=== PATIENT | female | born 1965 | race Caucasian/White ===

== ENCOUNTER 2021-03-18 10:33 | Outpatient (RCR) | payer OTHER, SELFPAY | END 2021-04-05 23:59 | disposition home or self-care (01) | LOC: SPT 10:33 | PROVIDERS: Family Provider Family Medicine; PCP Family Medicine; Referring Provider Internal Medicine; Visit Provider Internal Medicine | DX: M12.812 Other specific arthropathies, not elsewhere classified, left shoulder (principal) | CPT/HCPCS: 97110; 97140; 97162 ==

== ENCOUNTER 2021-03-25 17:13 | Outpatient (CLI) | payer OTHER, SELFPAY ==
--- NOTE | 2021-03-25 | XRR_ITS ---
PROCEDURE INFORMATION: Exam: XR Left Shoulder Exam date and time: 03/25/2021 5:34 PM Age: 56 years old Clinical indication: Pain; Shoulder; Left; Additional info: Left shoulder pain TECHNIQUE: Imaging protocol: XR Left shoulder. Views: 2 or more views. COMPARISON: No relevant prior studies available. FINDINGS: Bones/joints: Normal. Soft tissues: Small soft tissue calcification near the insertion of the supraspinatus tendon. Calcific tendinopathy not excluded. XR/XR shoulder LT min 2V* [id number] IMPRESSION: No acute osseous findings.
== END 2021-03-25 17:14 | disposition home or self-care (01) ==
PROVIDERS: PCP Internal Medicine; Visit Provider Internal Medicine
DX: M25.512 Pain in left shoulder (principal)
CPT/HCPCS: 73030

== ENCOUNTER 2021-04-06 06:00 | Outpatient (RCR) | payer OTHER, SELFPAY | END 2021-05-06 23:59 | disposition home or self-care (01) | LOC: SPT 06:00 | PROVIDERS: PCP Internal Medicine; Referring Provider Internal Medicine; Visit Provider Internal Medicine | DX: M12.812 Other specific arthropathies, not elsewhere classified, left shoulder (principal) | CPT/HCPCS: 97110; 97140 ==

== ENCOUNTER 2024-09-02 16:37 | Outpatient (CLI) | payer OTHER, SELFPAY ==
--- NOTE | 2024-09-02 16:37 | XRR_ITS ---
PROCEDURE INFORMATION: Exam: XR Sacrum and Coccyx, 2 or More Views Exam date and time: 09/02/2024 4:49 PM Age: 59 years old Clinical indication: Pain in coccyx area; Since August 19 pain in pelvis and tailbone area, no specific injury; Additional info: M53.2x8 - spinal instabilities, sacral and sacrococcygeal. . . TECHNIQUE: Imaging protocol: XR of the sacrum and coccyx, 2 or more views. COMPARISON: CR XR pelvis 1-2V* [id number] 09/02/2024 4:49 PM FINDINGS: Bones/joints: Normal. No acute fracture. Soft tissues: Normal. XR/XR sacrum coccyx min 2V [id number] IMPRESSION: No acute findings.
--- NOTE | 2024-09-02 16:37 | XRR_ITS ---
PROCEDURE INFORMATION: Exam: XR Pelvis Exam date and time: 09/02/2024 4:49 PM Age: 59 years old Clinical indication: Pelvic pain; Since August 19 pain in pelvis and tailbone area, no specific injury; Additional info: M53.2x8 - spinal instabilities, sacral and sacrococcygeal. . . TECHNIQUE: Imaging protocol: Radiologic exam of the pelvis. Views: 1 or 2 view. COMPARISON: CR XR sacrum coccyx min 2V [id number] 09/02/2024 4:49 PM FINDINGS: Bones/joints: Unremarkable. No acute fracture. Soft tissues: Unremarkable. XR/XR pelvis 1-2V* [id number] IMPRESSION: No acute findings.
== END 2024-09-02 16:38 | disposition home or self-care (01) ==
PROVIDERS: PCP Family Medicine; Visit Provider Family Medicine
DX: M53.2X8 Spinal instabilities, sacral and sacrococcygeal region (principal)
CPT/HCPCS: 72170; 72220